=== PATIENT | female | born 1950 | race Caucasian/White ===

== ENCOUNTER → 2018-03-29 | Day surgery (SDC) | payer OTHER, MEDICARE ==
--- NOTE | 2018-03-30 10:55 | PATH ---
Surgical Pathology Report Patient Name: NANCY DICKEY [facility]. Rec. #: [id number] /Age/Gender: 1950 (Age: 67) / F Account: [id number] Location: [facility] Taken: 03/29/2018 Received: 03/29/2018 Reported: 03/30/2018 Physicians: Mark Lozano M.D. Specimen(s) Received LEFT BREAST 3:00 2 CMFN CORE BIOPSY Clinical History Ultrasound findings: Highly suspicious/malignant Final Diagnosis BREAST, LEFT, 3:00, 2 CM FN, CORE BIOPSY: INVASIVE DUCTAL CARCINOMA, MODERATELY TO POORLY DIFFERENTIATED, MEASURING AT LEAST 6 MM IN GREATEST DIMENSION IN THIS MATERIAL. Results of ER, NM, Her2 & Ki67 studies will be reported separately in an addendum. Electronically Signed Patti Weber M.D. Gross Description Received in formalin labeled "left breast biopsy 3:00, 2 cmfn," are 6 foote-yellow, cylindrical portions of fibroadipose tissue ranging from 0.9-1.5 cm in length and averaging 0.1 cm in diameter. The specimens are submitted in toto in one cassette. Time to formalin fixation: 2 minutes Total formalin fixation time: Approximately 8 hours. 03/29/201803/29/2018
== END | disposition home or self-care (01) ==
LOC: FRADUS-SUR 09:37
PROVIDERS: ATTEND Surgery Surgical Oncology
PROC: 0HBU3ZX Excision of Left Breast, Percutaneous Approach, Diagnostic (ICD-10-PCS; principal; 2018-03-29)
DX: C50.812 Malignant neoplasm of overlapping sites of left female breast (principal); N63.20 Unspecified lump in the left breast, unspecified quadrant
CPT/HCPCS: 19083; 77065-TC; 88305-TC

== ENCOUNTER → 2018-04-17 | Day surgery (SDC) | payer OTHER, MEDICARE ==
--- NOTE | 2018-04-18 15:07 | PATH ---
Surgical Pathology Report Patient Name: NANCY DICKEY [facility]. Rec. #: [id number] /Age/Gender: 1950 (Age: 68) / F Account: [id number] Location: [facility] Taken: 04/17/2018 Received: 04/17/2018 Reported: 04/18/2018 Physicians: Mark Lozano M.D. Specimen(s) Received LEFT BREAST SUSPICIOUS ENHANCING AREA ANTERIOR TO CA Clinical History Newly diagnosed left breast cancer, suspicious enhancing area anterior to cancer Final Diagnosis BREAST, LEFT, ENHANCING AREA, CORE BIOPSY: DUCTAL CARCINOMA IN SITU (DCIS), SOLID TYPE, HIGH NUCLEAR GRADE WITH EXTENSIVE NECROSIS AND ASSOCIATED CALCIFICATIONS. Results of ER and OH studies performed on block 1 at [facility] are as follows: ER (clone [id number] mouse monoclonal antibody by Leica): 0 % nuclear staining (Negative). OH (clone16 mouse monoclonal antibody by Leica): 0 % nuclear staining (Negative). See also concurrent left breast biopsy [id number]. Positive and negative controls (internal if applicable) show appropriate results. Formalin fixation and cold ischemic times are within current ASCO/CAP recommendations for ER, OH and Her2 testing. Electronically Signed Patti Weber M.D. Gross Description Received in formalin labeled "left breast," are 8 foote-yellow, cylindrical portions of fibroadipose tissue ranging from 1.7-2.2 cm in length and averaging 0.3 cm in diameter. The specimens are entirely submitted in 2 cassettes. Time to formalin fixation: 2 minutes Total formalin fixation time: Approximately 6 hours. /04/17/2018 saudi04/17/2018
== END | disposition home or self-care (01) ==
LOC: FRADUS-SUR 10:13
PROVIDERS: ATTEND Surgery Surgical Oncology
PROC: 0HBU3ZX Excision of Left Breast, Percutaneous Approach, Diagnostic (ICD-10-PCS; principal; 2018-04-17)
DX: C50.112 Malignant neoplasm of central portion of left female breast (principal); N63.20 Unspecified lump in the left breast, unspecified quadrant
CPT/HCPCS: 19085; 77065-TC; 88305-TC; 88342-TC; A4648; C1887

== ENCOUNTER 2018-09-27 08:30 | Inpatient (IN) | payer OTHER, MEDICARE ==
[2018-09-12 13:45] VITALS: BMI 24.8
--- NOTE | 2018-09-25 16:02 | HP ---
Admitting History and Physical - Primary Care Physician PCP: Emil Gan - Admission Chief Complaint: Left breast cancer History of Present Illness: 68 year old postmenapausal female with family H/O breast cancer. She underwent mammgram and us after noticing left breast tenderness 03/2018. It showed highly suspsicious mass 2.7 cm central left breast 1.8x2.6x1.3 cm at 3: 00 2 cm FN. There was also a suspicious left axillary lymph node 1.2x 1x.7 cm. She underwent left breast US core bx 03/2018 showing invasive ductal carcinoma ER /PA -,HEr 2 +. She underwent MRI breast showing man central lesion and another more anteriorly. She underwent directed Us and then an MRI core bx of anterior lesion which showed DCIS.The axillary lymph node was not thought to be suspicious and no adenopathy on the breast MRI. She has completed neoadjuvant chemotherapy. Repeat Breast MRI 08/29/2018 showed right breast negative and almost complete response to neoadjuvant chem with marked decrease in size and DCIS is no longer seen. History Source: Patient Limitations to Obtaining History: No Limitations - Past Medical History Cardiovascular: Yes: HTN Psych: Yes: Anxiety Endocrine: Yes: Hypothyroidism - Past Surgical History Additional Past Surgical History: trans thoracic laminectomy 1994 - Smoking History Smoking history: Never smoked - Alcohol/Substance Use Hx Alcohol Use: No Home Medications - Allergies Allergies/Adverse Reactions: Allergies Allergy/AdvReac Type Severity Reaction Status Date / Time levofloxacin [From Levaquin] Allergy Verified 09/12/18 13:31 - Home Medications Home Medications: Ambulatory Orders Levothyroxine [Synthroid -] 88 mcg PO DAILY 09/12/18 Loperamide HCl [Imodium -] 2 mg PO DAILY PRN 09/12/18 Magnesium 500 mg PO DAILY 09/12/18 Olmesartan Medoxomil [Benicar] 20 mg PO DAILY PRN 09/12/18 Omeprazole 20 mg PO DAILY 09/12/18 Pertuzumab [Perjeta] 420 mg IVPB ASDIR 09/12/18 Salmeterol/Fluticasone [Advair 100Mcg/50Mcg -] 1 inh PO BID PRN 09/12/18 Sertraline HCl [Zoloft] 100 mg PO DAILY 09/12/18 Trastuzumab [Herceptin -] 150 mg IVPB ASDIR 01/23/19 Family Disease History - Family Disease History Family Disease History: CA: Father (leukemia 34), Mother (breast ca 72), Brother (Leukemia T cell 58// brother leukemia myelo56) Physical Examination Constitutional: Yes: Well Nourished Breast(s): Yes: Other ( C cup breats without skin changes or nipple dc. On palpation the previous left breast mass had dissapered No suspicious densities in either breast or adenopathy) Problem List - Problems (1) Breast cancer, left breast Code(s): C50.912 - MALIGNANT NEOPLASM OF UNSPECIFIED SITE OF LEFT FEMALE BREAST Qualifiers: Breast location: central portion of breast Estrogen receptor status: negative Patient sex: female Qualified Code(s): C50.112 - Malignant neoplasm of central portion of left female breast; Z17.1 - Estrogen receptor negative status [ER-] Assessment/Plan Left breast total mastectomy ,sentenel node biopsy ,possible axillary node dissection ,lymphoscintogram reconstruction
[2018-09-27] MEDS ORDERED: ceFAZolin SODIUM 1 GM VIAL ONE ×2 (09:46→11:20)
[2018-09-27] MEDS ORDERED: GENTAMICIN SO4 80 MG/2 ML VIAL ONE (09:46)
[2018-09-27] MEDS ORDERED: BUPIVACAINE LIPOSOME/PF (EXPAREL) 266 MG/20 ML VIAL ONE (10:41)
[2018-09-27] MEDS ORDERED: MIDAZOLAM HCL 2 MG/2 ML SINGLE DOSE VIAL ONE (10:41)
[2018-09-27] MEDS ORDERED: ONDANSETRON 4 MG/2 ML VIAL ONE ×3 (10:59→13:26)
[2018-09-27] MEDS ORDERED: DEXAMETHASONE SOD PHOSPHATE 4 MG/1 ML VIAL ONE ×2 (10:59→13:26)
[2018-09-27] MEDS ORDERED: SCOPOLAMINE HYDROBROMIDE 1 PATCH PATCH.TD72 ONE (10:59)
[2018-09-27] MEDS ORDERED: fentaNYL CITRATE 250 MCG/5 ML VIAL ONE (10:59)
[2018-09-27] MEDS ORDERED: SODIUM CHLORIDE 0.9% P/F 10 ML VIAL IJ ONE (11:00)
[2018-09-27] MEDS ORDERED: PROPOFOL 20 ML ONE ×7 (11:07→14:13)
[2018-09-27] MEDS ORDERED: SUCCINYLCHOLINE CHLORIDE 200 MG/10 ML VIAL ONE (11:07)
[2018-09-27] MEDS ORDERED: ROCURONIUM BROMIDE 50 MG/5 ML VIAL ONE ×2 (11:08→13:39)
[2018-09-27] MEDS ORDERED: ISOSULFAN BLUE 10 MG/ML VIAL SQ ONE (11:16)
[2018-09-27] MEDS ORDERED: ePHEDrine SULFATE 50 MG/1 ML AMPULE ONE (11:31)
[2018-09-27] MEDS ORDERED: ONDANSETRON 4 MG/2 ML VIAL IVPUSH PRN (13:36)
[2018-09-27] MEDS ORDERED: ACETAMINOPHEN 325 MG TABLET (FP) PO PRN (13:36)
[2018-09-27] MEDS ORDERED: ZOLPIDEM TARTRATE 5 MG TABLET PO PRN (13:36)
[2018-09-27] MEDS ORDERED: ALPRAZolam 0.25 MG TABLET PO PRN (13:37)
[2018-09-27] MEDS ORDERED: VALSARTAN 160 MG TABLET (UD) PO PRN (13:37)
[2018-09-27] MEDS ORDERED: DEXTROSE 5%-0.45% SALINE 1,000 ML IV SCH (13:45)
[2018-09-27] MEDS ORDERED: NEOSTIGMINE METHYLSULFATE 0.5 MG/ML - 10 ML MDV ONE (14:22)
[2018-09-27] MEDS ORDERED: GLYCOPYRROLATE 0.2 MG/1 ML VIAL ONE (14:24)
--- NOTE | 2018-09-27 14:50 | SURG ---
Surgery Systems Consultant Note Systems Consultant: Thang Azar PA-C Date of Service: 09/27/18 Diagnosis: Left breast cancer Procedure: Left breast reconstruction with alloderm and silcone implant I was present for the entirety of the operative procedure. For further detail, please refer to operative report. Visit type - Case Type Case Type: Scheduled - New patient This patient is new to me today: Yes Date on this admission: 09/27/18
[2018-09-27] MEDS ORDERED: CEFAZOLIN 1 GM/D5W 1 GRAM/50 ML BAG IVPB SCH (15:00)
[2018-09-27] MEDS ORDERED: oxyCODONE HCL 5 MG TABLET PO PRN ×2 (16:17)
[2018-09-27] MEDS ORDERED: LACTATED RINGERS SOLUTION 1,000 ML IV SCH (16:30)
[2018-09-27] MEDS: CEFAZOLIN 1 GM/D5W 1 GRAM/50 ML BAG IVPB SCH ×2 (17:40→23:43)
--- NOTE | 2018-09-27 20:19 | OP ---
DATE OF OPERATION: 09/27/2018 PREOPERATIVE DIAGNOSIS: Left breast central breast cancer. POSTOPERATIVE DIAGNOSIS: Left breast central breast cancer. PROCEDURE: Left breast skin-sparing total mastectomy with left axillary sentinel lymph node biopsy and zcvgvf-jx-dxzlhcr reconstruction with AlloDerm by Plastic Surgery. ANESTHESIA: General endotracheal. PRIMARY SURGEON: Dejon Gan MD WEAPONS ENGINEER: CAROLINE Prescott PRIMARY SURGEON FOR LEFT BREAST [id number] RECONSTRUCTION WITH ALLODERM: Dejon Harris MD COMPLICATIONS: None. Briefly, the patient is a 68-year-old, G2, P2, postmenopausal white female, [place] descent. She has a family history with her mother who had breast cancer at age 72. Her father and 2 brothers from leukemia. The patient underwent the mammography and ultrasound in March 2018, showing a left breast central, 2.7-cm breast cancer with ultrasound showing highly suspicious density measuring 2.6 x 1.8 x 1.3 cm. An ultrasound core biopsy showed a poorly differentiated, invasive duct cancer which was ER/NE negative and HER2 positive with a Ki-67 of 40%. MRI showed the central left breast cancer and a more-anterior lesion which was biopsied under MR guidance and turned out to be high-grade DCIS which was ER/NE negative. She underwent neoadjuvant chemotherapy with TCHP, and followup MRI after neoadjuvant chemotherapy showed significant resolution of the lesion, now only measuring about 1 cm. She was advised on undergoing a left breast total mastectomy given the extent of the cancer. The patient was seen by Plastic Surgery preoperatively and decided to go forward with cerbtc-eu-mbzfccj reconstruction. She understood the need for a sentinel lymph node biopsy. She was brought in for the procedure on September 27, 2018. She first underwent a lymphoscintigraphy at [facility] through a periareolar injection of technetium 99 around the left breast nipple-areolar complex. She was brought to the holding area at [facility], and in the holding area, site verification was made and informed consent was obtained. She was marked preoperatively by the plastic surgeon. She did undergo a prepectoral nerve block prior to going to the operating room by Anesthesia. She was brought into the operating room and laid on the OR table in the supine position. Venodynes were placed on the lower extremities prior to induction. She received 2 g of Ancef prior to incision. Both breasts were sterilely prepped and draped in usual fashion, and she underwent general endotracheal anesthesia. Next, 3 mL of Lymphazurin blue were injected intradermally around the left breast nipple-areolar complex, and massage was instituted. The left axillary sentinel lymph node biopsy was first performed and an incision was made just below the hair-bearing area of the left axilla and dissection was undertaken. A blue lymphatic was easily seen coursing to a blue, hot lymph node with a 10-second gamma count of 6012. This was sent for frozen section. No other blue or hot nodes were found, and background count after removal of this node was 146. Frozen section on the sentinel node came back negative; so, no further nodes were removed. At this point, the mastectomy was performed through a periareolar elliptical incision around the left breast nipple-areolar complex in a skin-sparing fashion. Skin flaps were raised superiorly to the level of the clavicle, medially to the level of the sternum, laterally to the level of the latissimus, and inferiorly below the level of the inframammary fold. This was done using the PEAK radiofrequency device. The breast was then taken down off the pectoralis major muscle from medial to lateral using electrocautery, removing the breast off the pectoralis major muscle. The breast was completely removed intact and oriented with a long lateral, short superior suture. Specimen radiographs showed removal of both clips in question. The specimen was oriented with a long lateral/short superior suture and, after specimen radiograph, was placed in formalin to be sent down to Pathology as specimen. Skin flaps were evaluated and trimmed for good cosmetic result. A separate anterior margin was taken both on the lateral and central regions of the skin flaps and sent separately to Pathology as lateral anterior and central anterior margins, respectively. The wound was copiously irrigated with warm sterile saline. At this point, Dr. Harris became the primary surgeon to perform the pdujux-zb-nddnqyc reconstruction in a subpectoral location using AlloDerm to allow for the oyyhlp-cu-rossiwt reconstruction. This will be dictated separately by Plastic Surgery. All wounds will be closed by Plastic Surgery. We did use the SPY intraoperative angiography device during the case, which did show good skin perfusion of the flaps. Two drains were placed around the implant and brought through separate stab incisions on the lateral skin flap and secured in place using 3-0 nylon suture. Wounds were closed by Plastic Surgery using interrupted 3-0 deep dermal PDS and a running 4-0 subcuticular PDS suture. Mastisol and Steri-Strips were applied over the wound, and the drains were placed on VERÓNICA self-bulb suction. The patient tolerated the procedure well, without difficulty, was extubated at the end of the case. She was brought to the postanesthesia care unit in stable condition and will be admitted postoperatively for pain and wound management. Sponge and needle counts were correct at the end of the case, and estimated blood loss was about 100 mL. She was hemodynamically stable throughout. DEJON GAN M.D. [id number]
[2018-09-27] MEDS ORDERED: PT OWN MED DRAWER 7, Y5N ONE (21:08)
[2018-09-27] MEDS: FLUTICASONE/SALMETEROL 100 MCG/50 MCG DISKUS IH SCH (21:38)
[2018-09-28] MEDS: CEFAZOLIN 1 GM/D5W 1 GRAM/50 ML BAG IVPB SCH ×2 (06:22→12:51)
[2018-09-28 06:36] VITALS: TEMP 98.2
[2018-09-28] MEDS ORDERED: LEVOTHYROXINE NA 88 MCG TABLET (FP) PO SCH (07:00)
[2018-09-28 07:26] LABS: HEMATOCRIT 25.3 % (32.4-45.2); HEMOGLOBIN 7.9 GM/dl (10.7-15.3); MCH 21.4 pg (25.7-33.7); MCHC 31.2 g/dl (32.0-36.0); MEAN CELL VOLUME 68.5 fl (80-96); MEAN PLT VOLUME 7.5 fl (7.5-11.1); PLATELET COUNT 160 K/MM3 (134-434); RBC 3.69 M/mm3 (3.60-5.2); RDW 14.9 % (11.6-15.6); WHITE BLOOD COUNT 5.6 K/mm3 (4.0-10.8)
[2018-09-28] MEDS ORDERED: HEPARIN NA (PORCINE) 5,000 UNITS/ML 1ML VIAL SQ SCH (08:00)
--- NOTE | 2018-09-28 09:19 | PN ---
Progress Note, Physician Chief Complaint: Left breast cancer S/P neoadjuvant chemotherapy Left total mastectomy sentenel node biopsy, implant alloderm reconstruction, POD#1 History of Present Illness: patient is eating, no nausea or vomiting ,OOB and ambulating well. Minimal pain not needing any narcotics. Block worked well for pain management. H/H 7.9/ 25.3 BP 90/52 Patient is asymptomatic and runs a low BP and preop H/H was 28/ 8.9. She had 4 transfusions for a very low H/H during chemotherapy. Fluid bolus given and will recheck BP in two hours - Current Medication List Current Medications: Active Medications Acetaminophen (Tylenol -) 650 mg PO Q4H PRN PRN Reason: FEVER Alprazolam (Xanax -) 0.25 mg PO DAILY PRN PRN Reason: ANXIETY Heparin Sodium (Porcine) (Heparin -) 5,000 unit SQ BID@0800,2000 [facility] Last Admin: 09/28/18 08:20 Dose: Not Given Dextrose/Sodium Chloride (D5-1/2ns -) 1,000 mls @ 100 mls/hr IV ASDIR [facility] Last Admin: 09/27/18 16:55 Dose: Not Given Cefazolin Sodium (Ancef 1 Gm Premixed Ivpb -) 1 gram in 50 mls @ 100 mls/hr IVPB Q6H [facility] Last Admin: 09/28/18 06:22 Dose: 100 mls/hr Lactated Ringer's (Lactated Ringers Solution) 1,000 mls @ 125 mls/hr IV ASDIR [facility] Last Admin: 09/27/18 16:55 Dose: Not Given Levothyroxine Sodium (Synthroid -) 88 mcg PO DAILY@0700 [facility] Last Admin: 09/28/18 06:21 Dose: 88 mcg Ondansetron HCl (Zofran Injection) 4 mg IVPUSH Q6H PRN PRN Reason: NAUSEA AND/OR VOMITING Oxycodone HCl (Roxicodone -) 5 mg PO Q3H PRN PRN Reason: PAIN LEVEL 1-5 Oxycodone HCl (Roxicodone -) 10 mg PO Q3H PRN PRN Reason: PAIN LEVEL 6-10 Pantoprazole Sodium (Protonix -) 20 mg PO DAILY [facility] Fluticasone/Salmeterol (Advair 100mcg/50mcg -) 1 puff IH BID [facility] Last Admin: 09/27/18 21:38 Dose: Not Given Sertraline HCl (Zoloft -) 100 mg PO DAILY [facility] Valsartan (Diovan -) 160 mg PO DAILY PRN PRN Reason: HYPERTENSION Zolpidem Tartrate (Ambien -) 5 mg PO HS PRN PRN Reason: Insomnia - Objective Vital Signs: Vital Signs Temperature 98.2 F 09/28/18 06:00 Pulse Rate 69 09/28/18 08:37 Respiratory Rate 16 09/28/18 08:37 Blood Pressure 90/46 L 09/28/18 08:37 O2 Sat by Pulse Oximetry (%) 99 09/28/18 08:37 Constitutional: Yes: No Distress Breast(s): Yes: Other (Left chest wall flap viable minimal echymosis,faisal drains functioning well incision intact with steristrips) Labs: CBC, BMP 09/28/18 07:00 Problem List - Problems (1) Breast cancer, left breast Code(s): C50.912 - MALIGNANT NEOPLASM OF UNSPECIFIED SITE OF LEFT FEMALE BREAST Qualifiers: Breast location: central portion of breast Estrogen receptor status: negative Patient sex: female Qualified Code(s): C50.112 - Malignant neoplasm of central portion of left female breast; Z17.1 - Estrogen receptor negative status [ER-] Assessment/Plan Continue IV antibiotics Recheck BP after additional IV fluid FAISAL drain training. discharge later today or early tomorrow. tylenol prn pain
[2018-09-28] MEDS ORDERED: PATIENT'S OWN MEDICATION (NON-FORMULARY) (Omeprazole 20 MG) PO SCH (10:00)
[2018-09-28] MEDS ORDERED: PATIENT'S OWN MEDICATION (NON-FORMULARY) (Sertraline Hcl [Zoloft] 100 MG) PO SCH (10:00)
[2018-09-28] MEDS ORDERED: SERTRALINE HCL 50 MG TABLET (FP) PO SCH (10:00)
[2018-09-28] MEDS ORDERED: PANTOPRAZOLE 20 MG TABLET (FP) PO SCH (10:00)
[2018-09-28] MEDS ORDERED: PT OWN MED DRAWER 7, Y5N ONE (10:06)
[2018-09-28] MEDS: FLUTICASONE/SALMETEROL 100 MCG/50 MCG DISKUS IH SCH (10:09)
--- NOTE | 2018-09-28 10:16 | PN ---
Progress Note (short form) - Note Progress Note: POD #1 - s/p left mastectomy. VSS. Pt. doing well, sitting up comfortably in bed. No complaints. No apparent anesthetic complications noted. Continue current care.
[2018-09-28] MEDS ORDERED: DEXTROSE 5%-NORMAL SALINE 1,000 ML IV SCH (11:30)
[2018-09-28] MEDS ORDERED: LOPERAMIDE HCL 2 MG CAPSULE PO PRN (13:28)
[2018-09-28 14:03] VITALS: BP 99/45; PULSE 75
--- NOTE | 2018-09-28 14:21 | PN ---
Progress Note (short form) - Note Progress Note: Doing well Walking and eating Very little to no pain Will dc today
--- NOTE | 2018-10-02 16:28 | PATH ---
Surgical Pathology Report Patient Name: NANCY DICKEY Med. Rec. #: [id number] /Age/Gender: 1950 (Age: 68) / F Account: [id number] Location: [facility] MED-SURG Taken: 09/27/2018 Received: 09/27/2018 Reported: 10/02/2018 Physicians: Emil Gan M.D. Specimen(s) Received A: LEFT SENTINEL NODE #1 (FS) B: LEFT BREAST C: LEFT LATERAL MARGIN D: LEFT CENTRAL ANTERIOR MARGIN Clinical History Central IDC s/p neoadjuvant CTX, TCHP (Her2 +) Intraoperative Consult Diagnosis Left sentinel node #1, frozen section: One negative lymph node. Yas Weber M.D., 09/27/2018 Final Diagnosis A. lymph node, left sentinel #1, excision (FS): One lymph node, negative for metastatic carcinoma on H&E stained sections and cytokeratin (AE1/3) immunostain (0/1). B. breast, left, total mastectomy: Minute (< 1 mm) focus of residual ductal carcinoma in situ (DCIS), HIGH NUCLEAR GRADE, present in association with dense hyalinizing fibrosis and histiocytic reaction, consistent with treated tumor bed tissue. (See note) No residual invasive carcinoma is identified. SURGICAL MARGINS ARE UNIVOLVED BY DCIS. (see note) No lymphovascular invasion is identified. Remaining breast tissue shows focal atypical lobular hyperplasia (ALH), small radial scar, columnar cell change and microcysts with associated calcifications. (See note) prior biopsy site changes are identified (two separate sites). Nipple and skin with no pathologic findings. Pathologic stage (ypTNM): ypTis (dcis) ypN0. Note: The minute focus of DCIS is present in a tissue block with no inked margins present in the block; however the transected tissue edges in the block are widely clear of the focus of DCIS. Tissue blocks representing anterior and deep margins do not have any in situ or invasive carcinoma. Immunohistochemical studies performed at [facility] show the following results: Myoepithelial immunohistochemical markers (SMM-HC and p63; block B4) demonstrate the presence of myoepithelial cells in the minute focus of residual DCIS. Cytokeratin (AE 1/3) immunostain is positive in the focus of DCIS. Myoepithelial immunohistochemical markers (SMM-HC and p63; block B7) demonstrate the presence of myoepithelial cells in the small radial scar. The foci of ALH and negative for E-Cadherin, which supports lobular phenotype. These finding support the diagnosis. See also prior left breast core biopsies from March 2018 ([id number], [id number]). Results of ER and TX studies performed on block B4 (on minute focus of DCIS) at [facility] are as follows: ER (clone [id number] mouse monoclonal antibody by Leica): ~60 % nuclear staining with moderate to strong intensity (Positive). TX (clone16 mouse monoclonal antibody by Leica): 0 % nuclear staining (Negative). Positive and negative controls (internal if applicable) show appropriate results. Formalin fixation time is within current ASCO/CAP recommendations for ER, TX and Her2 testing. Time to formalin fixation is not given. C. breast, left, lateral margin, excision: Benign fibroadipose tissue. D. breast, left central anterior margin, excision: Benign BREAST tissue. Electronically Signed Patti Weber M.D. Gross Description A. Received fresh labeled "left sentinel node #1," is a 0.8 x 0.7 x 0.3 cm lymph node with attached fatty tissue. A frozen section is performed on the lymph node. The frozen section residue is entirely submitted in one cassette. B. Received in formalin, labeled "left breast," is a 485 gram, 18.0 x 16.0 x 4.3 cm. left mastectomy specimen with a short suture marking the superior aspect and a long suture marking the lateral aspect of the specimen, per the surgeon. The anterior surface displays a 4.8 x 2.5 cm foote, elliptical portion of skin with a 0.9 cm diameter nipple. The deep margin is inked black and the anterior soft tissue margin is inked blue. The specimen is serially sectioned from medial to lateral. Sectioning reveals a 1.6 x 1.0 x 0.8 cm ill-defined focus of firm fibrous tissue in the lower outer quadrant (LOQ). The focus contains a roman metallic biopsy clip. There is a separate focus of firm fibrous tissue marked by a Prolene suture abutting the anterior soft tissue margin, also in the LOQ. No definitive mass is identified. The remaining breast parenchyma displays foci of white fibrous tissue Morphology Teacher sections are submitted in 15 cassettes as follows: 1-serially sectioned nipple; 2-subareolar shave; 3-4-LOQ firm focus containing biopsy clip; 8-6-lxldsqrz focus of fibrous tissue with anterior margin marked by a Prolene suture; 8-uninvolved LOQ tissue; 9-upper outer quadrant; 10-11-upper inner quadrant; 12-13-lower inner quadrant; 14-skin; 15-deep margin. Time to formalin fixation: Not given Total formalin fixation time: Approximately 24 hours C. Received in formalin labeled "left lateral margin," is a 4.5 x 3.0 x 1.6 cm portion of fibroadipose tissue with a suture marking the biopsy cavity side, per the surgeon. The new margin is inked blue and the specimen is serially sectioned. The specimen is entirely and sequentially submitted in 8 cassettes. D. Received in formalin labeled "left central anterior margin," is a 3.5 x 2.5 x 0.6 cm portion of fibroadipose tissue with a suture marking the biopsy cavity side, per the surgeon. The new margin is inked blue and the specimen is serially sectioned. The specimen is entirely submitted in 3 cassettes. 09/28[facility]
--- NOTE | 2018-10-08 07:48 | OP ---
DATE OF OPERATION: 09/27/2018 SURGEON: Dejon Harris MD [employer]RO[employer] SUR[employer]OR SURGEON: Thang Azar PA-C This is a combined dictation with Dr. Dejon Gan. 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 OPERATIVE PROCEDURE: 1. Immediate left breast reconstruction utilizing immediate insertion of silicone breast implant and AlloDerm reconstruction. 2. Intraoperative indocyanine green angiogram with intravenous injection x2. 3. Interpretation and analysis of intraoperative angiogram. OPERATIVE INDICATION: Patient is a 68-year-old female who was brought to the operating room by Dr. Dejon Gan for a left mastectomy and related procedures. The risks and benefits of surgical versus nonsurgical alternatives as well as the material complications of this procedure were described to the patient on multiple occasions. She agreed to the planned procedure. The patient was marked in the standing position preoperatively for outline of the procedure. All questions were asked and answered. OPERATIVE PROCEDURE IN DETAIL: The patient was taken to the operating room by Dr. Dejon Gan where he performed a unilateral mastectomy on the left breast. The patient tolerated this nicely and it will be dictated under separate cover. Upon completion of the mastectomy the wounds were copiously irrigated by me. Hemostasis was meticulously obtained throughout the pocket. At this point attention was turned to the chest wall where the pectoralis major muscle was seen laterally. A pocket was then fashioned superiorly from the 2nd rib, medially to the sternal fibers and down to the inframammary fold, elevating the pectoralis major muscle. Hemostasis was meticulously obtained throughout the pocket. The origin of the pectoralis major muscle was also elevated and then a contour sheet of AlloDerm was brought into the field. This had been rehydrated in a sterile fashion on the back table with 3 rinses of saline and triple-antibiotic solution. The wound was then copiously irrigated with triple-antibiotic solution throughout the pocket and again hemostasis achieved. The AlloDerm was then brought into the field and sutured to the pectoralis major muscle superiorly with a 3-0 Vicryl suture to the medial portion and then laterally along the pectoralis major muscle border out to the lateral mammary fold. This was continued down on the lateral mammary fold suturing it down to the chest wall at the serratus fascial level. A 2nd suture was begun on the medial side running the suture medially to recreate the medial portion of the breast and then down to the inframammary fold again. For this patient an implant was chosen. The implant chosen for this patient was a Sientra style 107 high-profile round smooth silicone gel implant of 505-mL volume. This was placed into the retropectoral AlloDerm pocket and then brought down over the inferior pole using the same 3-0 Vicryl sutures which were run in the medial and lateral directions to meet each other. This was then sutured and tied together and good shape and contour of the breast was seen. An intraoperative SPY angiogram was performed just before this implant was placed with the evaluation of the mastectomy skin pocket. green dye 4 mL were injected into the intravascular system and then a SPY intraoperative angiogram was evaluated. Good blood flow was seen into the skin, subcutaneous tissues and good viability of the tissues was seen. After the implant was placed and sutured, two 15 Yair drains were brought out through separate stab wounds laterally, sutured into position using 3-0 nylon suture. The skin and subcutaneous tissue were again irrigated and then brought down into this new anatomic position, sutured using 3-0 PDS suture on the deep fascia, 3-0 in a deep dermal fashion and 4-0 in a subcuticular fashion. Once this was closed attention was turned back to the SPY intraoperative arteriogram. Another 4 mL was separately injected into the intravascular system for reevaluation of the skin after implant placement. This showed also good viability of the skin and turgor of the tissues. At this point dressings were placed with Biopatch dressings over the drains x2. Fluff dressings and a Surgi-Bra were also placed over the patient. She tolerated her procedure well. She was awakened, extubated and transferred to the recovery room in satisfactory condition. DEJON HARRIS M.D. [id number]
== END 2018-09-28 15:11 | disposition home or self-care (01) | DRG 581 ==
LOC: FM/S 09:38
PROVIDERS: ADMIT Surgery Surgical Oncology; ATTEND Surgery Surgical Oncology
PROC: 4A1GXSH Monitoring of Skin and Breast Vascular Perfusion using Indocyanine Green Dye, External Approach (ICD-10-PCS; 2018-09-27)
PROC: 0HTU0ZZ Resection of Left Breast, Open Approach (ICD-10-PCS; principal; 2018-09-27 11:03)
PROC: 07B60ZX Excision of Left Axillary Lymphatic, Open Approach, Diagnostic (ICD-10-PCS; 2018-09-27 11:03)
PROC: 0HRU0JZ Replacement of Left Breast with Synthetic Substitute, Open Approach (ICD-10-PCS; 2018-09-27 11:03)
DX: C50.112 Malignant neoplasm of central portion of left female breast (principal); Z17.1 Estrogen receptor negative status [ER-]; I10 Essential (primary) hypertension; E03.9 Hypothyroidism, unspecified
CPT/HCPCS: 36415; 78195-TC; 85027; 88307-TC; 88331-TC; 88341-TC; 94760; A9541

== ENCOUNTER 2023-12-13 04:23 | Day surgery (SDC) | payer OTHER, MEDICARE ==
[2023-12-06 14:13] VITALS: BMI 27.1
[2023-12-13 09:37] VITALS: RESP 18; TEMP 97.3
[2023-12-13 10:25] VITALS: BP 131/68; PULSE 63
== END 2023-12-13 10:07 | disposition home or self-care (01) ==
LOC: JASU-ENDO 04:23
PROVIDERS: ATTEND Internal Medicine Gastroenterology
PROC: 0DBL8ZX Excision of Transverse Colon, Via Natural or Artificial Opening Endoscopic, Diagnostic (ICD-10-PCS; principal; 2023-12-13 09:00)
DX: Z12.11 Encounter for screening for malignant neoplasm of colon (principal); K63.5 Polyp of colon; K57.30 Diverticulosis of large intestine without perforation or abscess without bleeding; Z86.010 Personal history of colon polyps
CPT/HCPCS: 88305-TC